=== PATIENT | male | born 1965 | race Asian ===

== ENCOUNTER 2023-09-11 10:05 | Inpatient (IN) | payer OTHER, SELFPAY ==
[2023-09-11] MEDS ORDERED: ASPIRIN 81 MG CHEWABLE TABLET ONE (10:38)
[2023-09-11 11:11] LABS: Absolute Lymphocytes (CBC) 1.5 K/uL (0.7-4.9); Absolute Monocytes 0.3 K/uL (0.1-1.3); Basophils % 0.5 % (0-1.3); Eosinophils % 0.9 % (0-4.4); Hematocrit 41.4 % (39.6-49.0); Hemoglobin 14.2 g/dL (13.6-17.9); Lymphocytes % 30.8 % (15.3-44.8); MCH 31.4 pg (27.0-35.0); MCHC 34.3 g/dL (32.0-36.0); MCV 91.6 fL (80-100); MPV 8.7 fL (7.6-11.3); Monocytes % 6.4 % (3.3-12.3); Neutrophils % 61.4 % (41.7-73.7); Nucleated Red Blood Cells % 0.2 % (0-0); Platelets 167 thou/uL (152-406); RBC Red Blood Cell Count 4.52 M/uL (4.33-5.43); Red Cell Distribution Width 14.5 % (12.1-15.2)
[2023-09-11 11:29] LABS: ALT/SGPT 19 U/L (16-61); AST/SGOT 13 U/L (15-37); Albumin 3.5 g/dL (3.4-5.0); Albumin/Globulin Ratio 0.9 (1.1-1.8); Alkaline Phosphatase 53 U/L (45-117); Anion Gap 7.8 mEq/L (5.0-15.0); BUN Blood Urea Nitrogen 14 mg/dL (7-18); Bicarbonate 25 mEq/L (21-32); Bilirubin Total 0.4 mg/dL (0.2-1.0); Globulin 3.7 g/dL (2.3-3.5); Glomerular Filtration Rate 101 ml/min (=/>90); Glucose Level 82 mg/dL (74-106); Magnesium 2.3 mg/dL (1.6-2.4); NT PRO-BNP 340 pg/mL (<125); Potassium 3.8 mEq/L (3.5-5.1); Protein, Total 7.2 g/dL (6.4-8.2); Sodium Level 140 mEq/L (136-145); Troponin High Sensitivity 49.4 pg/mL (<58.9)
[2023-09-11 11:30] LABS: Bilirubin Direct < 0.2 mg/dL (0-0.2); Bilirubin Indirect, Calculated 0.2 mg/dL (0.2-0.8)
[2023-09-11 11:32] LABS: Protime INR 0.98
--- NOTE | 2023-09-11 12:01 | EDPHYS ---
Physician Documentation [facility] Name: Patrick Cervantes Age: 58 yrs Sex: Male : 1965 Arrival Date: 09/11/2023 Time: 10:05 Bed 11 Private MD: ED Physician Amos San HPI: 09/10 10:38 This 58 yrs old Male presents to ER via Ambulatory with complaints of Chest Pain. sb4 10:38 The patient or guardian reports chest pain that is located primarily in the substernal sb4 area. Onset: 3 day(s) ago. The pain radiates to the left arm. Associated signs and symptoms: Pertinent positives: weakness. The patient has experienced a previous episode, approximately 2 years ago, and the symptoms today are exactly the same. The patient has not recently seen a physician. chest discomfort, left arm tingling, generalized weakness. states this is how he felt when he previously experienced "heart failure" echo done in January 2023 showed an EF of 26%. Historical: - Allergies: 10:32 No Known Allergies; hb - Home Meds: 10:32 isosorbide mononitrate 60 mg Oral Tablet, Extended Release 24 hr daily [Active]; hb Nitrostat SL [Active]; metoprolol succinate 50 mg oral Tablet, Extended Release 24 hr daily [Active]; aspirin 81 mg oral tablet,chewable daily [Active]; prasugrel 10 mg oral tablet 3 tab daily [Active]; lisinopril 2.5 mg Oral tablet daily [Active]; atorvastatin 80 mg oral tablet daily [Active]; ezetimibe 10 mg oral tablet daily [Active]; - PMHx: 10:32 Heart Failure; NV; hb - PSHx: 10:32 Heart Stents; hb - Immunization history:: Adult Immunizations up to date. - Infectious Disease History:: Denies. - Social history:: Smoking status: Patient reports the use of cigarette tobacco products, smokes one pack cigarettes per day. ROS: 10:41 Respiratory: Negative for shortness of breath, cough, wheezing, and pleuritic chest sb4 pain, 10:41 Cardiovascular: Positive for chest pain, 10:41 Neuro: Positive for weakness, Exam: 10:41 Constitutional: This is a well developed, well nourished patient who is awake, alert, sb4 and in no acute distress. Head/Face: Normocephalic, atraumatic. Eyes: Extra-ocular motions intact. Periorbital areas with no swelling, redness, or edema. ENT: Mucous membranes moist. Cardiovascular: Regular rate and rhythm with a normal S1 and S2. Respiratory: Lungs have equal breath sounds bilaterally, clear to auscultation and percussion. No rales, rhonchi or wheezes noted. No increased work of breathing, no retractions or nasal flaring. Abdomen/GI: Soft, non-tender, no distension. Skin: Warm, dry with normal turgor. Normal color with no rashes, no lesions, and no evidence of cellulitis. MS/ Extremity: Pulses equal, no cyanosis. Neurovascular intact. Full, normal range of motion. Neuro: Awake and alert, GCS 15, oriented to person, place, time, and situation. Motor strength 5/5 in all extremities. Sensory grossly intact. Vital Signs: 10:30 BP 150 / 90; Pulse 82; Resp 15; Temp 98.3; Pulse Ox 100% on R/A; Weight 58.97 kg; hb Height 5 ft. 5 in. ; Pain 0/10; 11:10 BP 120 / 86; Pulse 74; Resp 16; Pulse Ox 99% on R/A; mb9 12:12 BP 107 / 82; Pulse 70; Resp 16; Pulse Ox 100% on R/A; mb9 10:30 Body Mass Index 21.63 (58.97 kg, 165.1 cm) hb 10:30 Pain Scale: Adult hb MDM: 10:17 Patient medically screened. sb4 11:35 The patient was given aspirin in the Emergency Department. Data reviewed: vital signs, sb4 nurses notes, lab test result(s), EKG, radiologic studies. Scoring Tools HEART Score: History: ECG: Age: Risk Factors: > or = 3 Risk factors for atherosclerotic disease (2), Troponin: Total Score = 5. 11:59 Counseling: I had a detailed discussion with the patient and/or guardian regarding the sb4 historical points, exam findings, and any diagnostic results supporting the discharge/admit diagnosis, lab results, radiology results, the need for further work-up and treatment in the hospital, smoking cessation. 09/10 10:30 Order name: Basic Metabolic Panel; Complete Time: 11:32 sb4 09/10 10:30 Order name: CBC with Diff; Complete Time: 11:32 sb4 09/10 10:30 Order name: LFT's; Complete Time: 11:32 sb4 09/10 10:30 Order name: Magnesium; Complete Time: 11:32 sb4 09/10 10:30 Order name: NT PRO-BNP; Complete Time: 11:32 sb4 09/10 10:30 Order name: PT-INR; Complete Time: 11:33 sb4 09/10 10:30 Order name: Troponin HS; Complete Time: 11:32 sb4 09/10 10:30 Order name: XRAY Chest (1 view); Complete Time: 12:34 sb4 09/10 10:30 Order name: Cardiac monitoring; Complete Time: 10:49 sb4 09/10 10:30 Order name: EKG - Nurse/Tech; Complete Time: 10:49 sb4 09/10 10:30 Order name: IV Saline Lock; Complete Time: 11:04 sb4 09/10 10:30 Order name: Labs collected and sent; Complete Time: 11: sb4 09/10 10:30 Order name: O2 Per Protocol; Complete Time: 10:49 sb4 09/10 10:30 Order name: O2 Sat Monitoring; Complete Time: 10:49 sb4 EC:44 Rate is 78 beats/min. Rhythm is regular, Sinus Rhythm with Occasional PVCs. NC interval sb4 is normal at 182 msec. QRS interval is normal at 94 msec. QT interval is normal at [address] changes noted. Clinical impression: No evidence of ischemia. Interpreted by me. Reviewed by me. Administered Medications: 11:08 Drug: Aspirin PO Chewable Tablet 324 mg PO once; 81 mg tablets x 4 Route: PO; mb9 12:37 Follow up: Response: No adverse reaction mb9 Disposition Summary: 09/11/23 12:00 Hospitalization Ordered Notes: Hospitalization Status: Observation sb4 Provider: Deejay Cervantes Location: Telemetry/MedSurg (observation) sb4 Condition: Fair sb4 Problem: new sb4 Symptoms: are unchanged sb4 Bed/Room Type: Standard sb4 Room Assignment: 222(09/11/23 13:00) eb Diagnosis - Chest pain, unspecified sb4 Discharge Instructions: - Discharge Summary Sheet mb9 Forms: - Medication Reconciliation Form sb4 - SBAR form sb4 - Leadership Thank You Letter sb4 - Work release form mb9 Addendum: 09/15/2023 02:38 I was immediately available for consultation during this patient's visit. I did not e c2 personally see the patient or discuss the patient with the TIFFANY. . Signatures: Dispatcher [employer] Paula Bourgeois RN RN Laura Hung Sophia, PA-C PAEliza sb4 Liana Hawthorne RN RN mb9 Amos San MD MD ec2 Corrections: (The following items were deleted from the chart) 09/10 10:30 10:30 BASIC METABOLIC PANEL+C.LAB.BRZ ordered. EDMS EDMS 10:30 10:30 CBC+H.LAB.BRZ ordered. EDMS EDMS 10:30 10:30 HEPATIC FUNCTION+C.LAB.BRZ ordered. EDMS EDMS 10:30 10:30 MAGNESIUM+C.LAB.BRZ ordered. EDMS EDMS 10:30 10:30 PROBNP+C.LAB.BRZ ordered. EDMS EDMS 10:30 10:30 PROTIME (+INR)+COAG.LAB.BRZ ordered. EDMS EDMS 10:30 10:30 Troponin High Sensitivity+C.LAB.BRZ ordered. EDMS EDMS 10:30 10:30 Chest Single View+RAD.RAD.BRZ ordered. EDMS EDMS 10:41 10:38 chest discomfort, left arm tingling, generalized weakness. states this is how he sb4 felt when he previously experienced "heart failure". sb4 13:00 12:00 sb4 eb
--- NOTE | 2023-09-11 12:01 | ER ---
Nurse's Notes [facility] Name: Patrick Cervantes Age: 58 yrs Sex: Male : 1965 Arrival Date: 09/11/2023 Time: 10:05 Bed 11 Private MD: Diagnosis: Chest pain, unspecified Presentation: 09/10 10:30 Chief complaint: Intermittent chest pain, SOB, left shoulder pain that radiates to left hb arm and generalized weakness x 1 week. Has been out of all medications x 1 month. Coronavirus screen: At this time, the client does not indicate any symptoms associated with coronavirus-19. Ebola Screen: No symptoms or risks identified at this time. Initial Sepsis Screen: Does the patient meet any 2 criteria? No. Patient's initial sepsis screen is negative. Does the patient have a suspected source of infection? No. Patient's initial sepsis screen is negative. Risk Assessment: Do you want to hurt yourself or someone else? Patient reports no desire to harm self or others. Onset of symptoms was September 04, 2023. 10:30 Method Of Arrival: Ambulatory hb 10:30 Acuity: ESPINOZA 2 hb Triage Assessment: 10:32 General: Appears in no apparent distress. Behavior is calm, cooperative. Pain: Pain hb currently is 0 out of 10 on a pain scale. Neuro: Level of Consciousness is awake, alert, obeys commands, Oriented to person, place, time, situation. Cardiovascular: Patient's skin is warm and dry. Respiratory: Respiratory effort is even, unlabored, Respiratory pattern is regular, symmetrical. Historical: - Allergies: 10:32 No Known Allergies; hb - Home Meds: 10:32 isosorbide mononitrate 60 mg Oral Tablet, Extended Release 24 hr daily [Active]; hb Nitrostat SL [Active]; metoprolol succinate 50 mg oral Tablet, Extended Release 24 hr daily [Active]; aspirin 81 mg oral tablet,chewable daily [Active]; prasugrel 10 mg oral tablet 3 tab daily [Active]; lisinopril 2.5 mg Oral tablet daily [Active]; atorvastatin 80 mg oral tablet daily [Active]; ezetimibe 10 mg oral tablet daily [Active]; - PMHx: 10:32 Heart Failure; MT; hb - PSHx: 10:32 Heart Stents; hb - Immunization history:: Adult Immunizations up to date. - Infectious Disease History:: Denies. - Social history:: Smoking status: Patient reports the use of cigarette tobacco products, smokes one pack cigarettes per day. Screenin:10 [facility] ED Fall Risk Assessment (Adult) History of falling in the last 3 months, mb9 including since admission No falls in past 3 months (0 pts) Confusion or Disorientation No (0 pts) Intoxicated or Sedated No (0 pts) Impaired Gait No (0 pts) Mobility Assist Device Used No (0 pt) Altered Elimination No (0 pt) Score/Fall Risk Level 0 - 2 = Low Risk Oriented to surroundings, Maintained a safe environment, Educated pt \T\ family on fall prevention, incl call for assistance when getting out of bed. Abuse screen: Denies threats or abuse. Nutritional screening: No deficits noted. Tuberculosis screening: No symptoms or risk factors identified. Assessment: 11:08 General: Appears in no apparent distress. Behavior is calm, cooperative. Pain: mb9 Complains of pain in chest Pain radiates to back and left arm Pain currently is 4 out of 10 on a pain scale. Quality of pain is described as sharp, Pain began 3 weeks ago Is intermittent. Neuro: Carvalho Agitation-Sedation Scale (RASS): 0 - Alert and Calm Level of Consciousness is awake, alert, obeys commands, Oriented to person, place, time, situation, Appropriate for age. Cardiovascular: Reports chest pain, Heart tones S1 S2 present Patient's skin is warm and dry. Rhythm is regular. Respiratory: Reports shortness of breath Airway is patent Respiratory effort is even, unlabored, Respiratory pattern is regular, symmetrical, Breath sounds are clear bilaterally. GI: Abdomen is flat, non-distended, Bowel sounds present X 4 quads. Abd is soft and non tender X 4 quads. Reports nausea. : No signs and/or symptoms were reported regarding the genitourinary system. EENT: No signs and/or symptoms were reported regarding the EENT system. Derm: Skin is pink, warm \T\ dry. Musculoskeletal: Range of motion: intact in all extremities. 12:12 Reassessment: No changes from previously documented assessment. Patient and/or family mb9 updated on plan of care and expected duration. Pain level reassessed. Patient is alert, oriented x 3, equal unlabored respirations, skin warm/dry/pink. Vital Signs: 10:30 BP 150 / 90; Pulse 82; Resp 15; Temp 98.3; Pulse Ox 100% on R/A; Weight 58.97 kg; hb Height 5 ft. 5 in. ; Pain 0/10; 11:10 BP 120 / 86; Pulse 74; Resp 16; Pulse Ox 99% on R/A; mb9 12:12 BP 107 / 82; Pulse 70; Resp 16; Pulse Ox 100% on R/A; mb9 10:30 Body Mass Index 21.63 (58.97 kg, 165.1 cm) hb 10:30 Pain Scale: Adult hb ED Course: 10:10 Patient arrived in ED. ts1 10:10 Pauline Catalan PA-C is PHCP. sb4 10:10 Amos San MD is Attending Physician. sb4 10:32 Triage completed. hb 10:35 Arm band placed on. hb 10:36 Client placed on continuous cardiac and pulse oximetry monitoring. NIBP monitoring hb applied. surveillance system monitor on. Pulse ox on. NIBP on. 10:36 Patient has correct armband on for positive identification. Placed in gown. Bed in low hb position. Call light in reach. Provided Education on: tests, result times. 10:45 EKG done, by ED staff, reviewed by Pauline Catalan PA-C. hb 10:56 XRAY Chest (1 view) In Process Unspecified. EDMS 11:01 Inserted saline lock: 22 gauge in right forearm, using aseptic technique. Blood hb collected. Flushed with 10 mL NS. 11:04 Liana Hawthorne, RN is Primary Nurse. mb9 11:04 Basic Metabolic Panel Sent. hb 11:04 CBC with Diff Sent. hb 11:04 LFT's Sent. hb 11:04 Magnesium Sent. hb 11:04 NT PRO-BNP Sent. hb 11:04 PT-INR Sent. hb 11:04 Troponin HS Sent. hb 11:10 No provider procedures requiring assistance completed. mb9 11:59 Deejay Cervantes MD is Hospitalizing Provider. sb4 12:13 Patient admitted, IV remains in place. mb9 Administered Medications: 11:08 Drug: Aspirin PO Chewable Tablet 324 mg PO once; 81 mg tablets x 4 Route: PO; mb9 12:37 Follow up: Response: No adverse reaction mb9 Medication: 11:10 VIS not applicable for this client. mb9 Outcome: 12:00 Decision to Hospitalize by Provider. sb4 12:37 Admitted to mb9 12:37 Condition: stable 12:37 Instructed on the need for admit, 13:36 Admitted to Med/surg accompanied by tech, via stretcher, room 222, mb9 13:36 Instructed on 13:37 Patient left the ED. mb9 Signatures: Dispatcher [employer] EDMS Paula Vaca RN Pauline Reeves, PA-C PA-C sb4 Liana Hawthorne RN RN mb9 Anayeli Sanchez, PAS PAS ts1
--- NOTE | 2023-09-11 12:31 | RAD REPORT ---
EXAM DESCRIPTION: Eulogio Single View09/11/2023 10:54 am CLINICAL HISTORY: CHEST PAIN COMPARISON: No comparisons TECHNIQUE: Portable AP view of the chest. FINDINGS: The lungs are clear apart from minimal reticular bibasilar opacities. No pneumothorax or effusion. The cardiomediastinal contours are unremarkable. IMPRESSION: Nonspecific minimal bibasilar reticular opacities, could reflect atelectasis, scarring, or mild interstitial process.
--- NOTE | 2023-09-11 12:41 | P.HP ---
Certification for Inpatient Patient admitted to: Observation With expected LOS: <2 Midnights <Jennifer Taylor - Last Filed: 09/11/23 14:00> Patient History Date of Service: 09/11/23 Reason for admission: Chest Pain History of Present Illness: 58 yrs old Male with past medical history of CAD, CHF with reduced EF, MT, 6 PCI, tobacco use presents to the emergency room with chest pain. He reports chest pain described as pressure radiates to left arm start 6 months ago, but worse over the last 24 hours. 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 He reports he has not seen a physician because he works a lot. Lives alone, smokes 1 pack a day, independent prior to admission. No reported dizziness, edema, fever, nausea vomiting diarrhea. Plan to admit for chest pain rule out MT, medication noncompliance, heart failure with reduced ejection fraction. - Past Medical/Surgical History -: CAD -: MT x2 -: PCI x6 -: HF w reduced EF -: tobacco use -: 6 PCI -: Hernia surgery - Social History Smoking Status: Current every day smoker Smoking therapy provided: Yes Alcohol use: No CD- Drugs: Yes Caffeine use: No Place of Residence: Home <Jennifer Taylor - Last Filed: 09/11/23 14:00> Date of Service: 09/11/23 <Deejay Cervantes - Last Filed: 09/12/23 00:43> Review of Systems PER HPI <Jennifer Taylor - Last Filed: 09/11/23 14:00> Physical Examination - Physical Exam General: Alert, In no apparent distress, Oriented x3 HEENT: Atraumatic, Normocephalic Neck: Supple, JVD not distended Respiratory: Clear to auscultation bilaterally, Normal air movement Cardiovascular: Normal pulses, Regular rate/rhythm Gastrointestinal: Normal bowel sounds, Soft and benign Musculoskeletal: No swelling, No contractures Integumentary: No breakdown, No significant lesion Neurological: Normal speech, Normal strength at 5/5 x4 extr, Cranial nerves 3-12 intact - Studies Laboratory Data (last 24 hrs) 09/11/23 09/11/23 09/11/23 11:01 11:01 11:01 WBC 4.90 Hgb 14.2 Hct 41.4 Plt Count 167 PT 11.0 INR 0.98 Sodium 140 Potassium 3.8 BUN 14 Creatinine 0.85 Glucose 82 Magnesium 2.3 Total Bilirubin 0.4 AST 13 L ALT 19 Alkaline Phosphatase 53 <Jennifer Taylor - Last Filed: 09/11/23 14:00> - Studies Laboratory Data (last 24 hrs) 09/11/23 09/11/23 09/11/23 11:01 11:01 11:01 WBC 4.90 Hgb 14.2 Hct 41.4 Plt Count 167 PT 11.0 INR 0.98 Sodium 140 Potassium 3.8 BUN 14 Creatinine 0.85 Glucose 82 Magnesium 2.3 Total Bilirubin 0.4 AST 13 L ALT 19 Alkaline Phosphatase 53 <Deejay Cervantes Сергей - Last Filed: 09/12/23 00:43> Assessment and Plan - Plan Assessment/Plan Chest pain rule out MT CAD CHF with reduced EF MT, 6 PCI tobacco Cardiology consult, tele, NPO after MN Lipid panel in am, trend trop Aspirin, beta-violetta, nitro, as needed analgesics, as needed antiemetic use presents to the emergency room with chest pain. He reports chest pain described as pressure radiates to left arm start 6 months ago, but worse over the last 24 hours. 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 He reports he has not seen a physician because he works a lot. Lives alone, smokes 1 pack a day, independent prior to admission. No reported dizziness, edema, fever, nausea vomiting diarrhea. Plan to admit for chest pain rule out MT, medication noncompliance, heart failure with reduced ejection fraction. BP 150 / 90; Pulse 82; Resp 15; Temp 98.3; Pulse Ox 100% on R/A EKG 78 beats/min. Rhythm is regular, Sinus Rhythm with Occasional PVCs. NJ interval is normal at 182 msec. QRS interval is normal at 94 msec. QT interval is normal at [address] changes noted. Clinical impression: No evidence of ischemia. Medications Hyperlipidemia Resume appropriate home meds Diet cardiac SCDs Lovenox Full code Disposition Home independent Discharge Plan: Home - Advance Directives Does patient have a Living Will: No Does patient have a Durable POA for Healthcare: No - Code Status/Comfort Care Code Status: Full Code Critical Care: No Time Spent Managing Pts Care (In Minutes): 55 <Jennifer Taylor - Last Filed: 09/11/23 14:00> Date of Service: 09/11/23 Patient was seen and examined. Events of the last 24 hours have been noted. Spoke with with TIFFANY regarding patient's clinical picture after evaluating and examining the patient independently. I performed a substantial part of the MDM during this patient's care today. I personally made or approved the documented management plan and acknowledge its risk of complications. I agree with the findings and documentation provided in the TIFFANY's notes. Patient will get chest pain workup and will get Cardiology consultation. Patient with history of coronary artery disease and cardiomyopathy. Continue with anti-platelet therapy and statin therapy along with diuretics. Patient will get admitted for cardiac evaluation and optimization. <Deejay Cervantes - Last Filed: 09/12/23 00:43>
[2023-09-11] MEDS ORDERED: ZOLPIDEM TARTRATE 5 MG TABLET PO PRN (13:58)
[2023-09-11] MEDS ORDERED: ACETAMINOPHEN 500 MG TAB PO PRN (13:58)
[2023-09-11] MEDS ORDERED: ONDANSETRON 4 MG/2 ML VIAL IV PRN (13:58)
[2023-09-11] MEDS ORDERED: ENOXAPARIN 60 MG/0.6 ML SQ SCH (14:00)
[2023-09-11] MEDS: ENOXAPARIN 60 MG/0.6 ML SQ SCH (14:00)
[2023-09-11 15:08] VITALS: BMI 21.6
[2023-09-12 06:31] LABS: Absolute Eosinophils 0.1 K/uL (0-0.5); Absolute Lymphocytes (CBC) 2.6 K/uL (0.7-4.9); Absolute Monocytes 0.4 K/uL (0.1-1.3); Absolute Neutrophil 4.2 K/uL (1.8-8.0); Basophils % 0.5 % (0-1.3); Eosinophils % 1.4 % (0-4.4); Hematocrit 46.3 % (39.6-49.0); Hemoglobin 15.5 g/dL (13.6-17.9); MCHC 33.5 g/dL (32.0-36.0); MCV 92.4 fL (80-100); MPV 8.9 fL (7.6-11.3); Monocytes % 5.6 % (3.3-12.3); Neutrophils % 57.5 % (41.7-73.7); Nucleated Red Blood Cells % 0.1 % (0-0); Platelets 176 thou/uL (152-406); RBC Red Blood Cell Count 5.01 M/uL (4.33-5.43); Red Cell Distribution Width 14.7 % (12.1-15.2)
[2023-09-12 07:01] LABS: Magnesium 2.2 mg/dL (1.6-2.4)
--- NOTE | 2023-09-12 08:44 | P.PN ---
Subjective Date of Service: 09/12/23 Chief Complaint: Chest Pain Subjective: No new changes (states he continues to feel pressure in upper left to right chest) <Danielle Ewing - Last Filed: 09/12/23 08:48> Date of Service: 09/12/23 <Deejay Cervantes - Last Filed: 09/13/23 03:28> Review of Systems 10-point ROS is otherwise unremarkable Cardiovascular: Chest Pain, As per HPI <Danielle Ewinglen - Last Filed: 09/12/23 08:48> Physical Examination - Vital Signs Temperature: 97.2 F Blood Pressure: 111/65 Pulse: 67 Respirations: 16 Pulse Ox (%): 99 - Physical Exam General: Alert, In no apparent distress, Oriented x3 HEENT: Atraumatic, Normocephalic Respiratory: Normal air movement Cardiovascular: Normal pulses, Regular rate/rhythm, Normal S1 S2 Capillary refill: <2 Seconds Gastrointestinal: Soft and benign Musculoskeletal: No clubbing, No swelling Integumentary: No rashes Neurological: Normal speech, Normal tone, Normal affect Lymphatics: No axilla or inguinal lymphadenopathy External genitalia: Deferred Rectal: Deferred - Studies Laboratory Data (last 24 hrs) 09/11/23 09/11/23 09/11/23 11:01 11:01 11:01 WBC 4.90 Hgb 14.2 Hct 41.4 Plt Count 167 PT 11.0 INR 0.98 Sodium 140 Potassium 3.8 BUN 14 Creatinine 0.85 Glucose 82 Magnesium 2.3 Total Bilirubin 0.4 AST 13 L ALT 19 Alkaline Phosphatase 53 <Danielle Ewinglen - Last Filed: 09/12/23 08:48> Assessment And Plan - Plan Assessment and Plan - Plan Assessment/Plan Chest pain rule out ID CAD CHF with reduced EF ID, 6 PCI tobacco Cardiology consult, tele, NPO after MN Lipid panel in am, trend trop Aspirin, beta-violetta, nitro, as needed analgesics, as needed antiemetic use presents to the emergency room with chest pain. He reports chest pain described as pressure radiates to left arm start 6 months ago, but worse over the last 24 hours. 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 He reports he has not seen a physician because he works a lot. Lives alone, smokes 1 pack a day, independent prior to admission. No reported dizziness, edema, fever, nausea vomiting diarrhea. Plan to admit for chest pain rule out ID, medication noncompliance, heart failure with reduced ejection fraction. BP 150 / 90; Pulse 82; Resp 15; Temp 98.3; Pulse Ox 100% on R/A EKG 78 beats/min. Rhythm is regular, Sinus Rhythm with Occasional PVCs. AR interval is normal at 182 msec. QRS interval is normal at 94 msec. QT interval is normal at [address] changes noted. Clinical impression: No evidence of ischemia. 09/12/23 Cardiology to evaluate, maintain NPO for now Medications Hyperlipidemia Resume appropriate home meds Diet cardiac SCDs Lovenox Full code <Danielle Ewing - Last Filed: 09/12/23 08:48> Date of Service: 09/12/23 Patient was seen and examined. Events of the last 24 hours have been noted. Spoke with with TIFFANY regarding patient's clinical picture after evaluating and examining the patient independently. I performed a substantial part of the MDM during this patient's care today. I personally made or approved the documented management plan and acknowledge its risk of complications. I agree with the findings and documentation provided in the TIFFANY's notes. Plan for cardiac catheterization in the morning. Continue with current cardiac medications. N.p.o. after midnight. Echocardiogram has been reviewed as well. <Deejay Cervantes - Last Filed: 09/13/23 03:28>
[2023-09-12] MEDS ORDERED: ENOXAPARIN 40 MG/0.4 ML SQ SCH (09:00)
[2023-09-12] MEDS: MORPHINE 2 MG/ML SYR IV PRN (12:17)
--- NOTE | 2023-09-12 12:30 | EKG ---
Test Date: 2023-09-11 Test Time: 10:41:52 Farm Reporter: HB MEASUREMENT RESULTS: Intervals: Rate: 78 CA: 182 QRSD: 94 QT: 354 QTc: 403 [place]: P: 61 CA: 182 QRS: 53 T: 78 INTERPRETIVE STATEMENTS: Sinus rhythm with sinus arrhythmia with occasional and consecutive premature ventricular complexes and fusion complexes Septal infarct, age undetermined Abnormal ECG No previous ECG available for comparison Electronically Signed On 09-12-23 12:29:13 CDT by Scott Sanford
--- NOTE | 2023-09-12 14:19 | ECHO ---
HEIGHT: 5 ft 5 in WEIGHT: 130 lb 0 oz DATE OF STUDY: 09/12/[address]: Jennifer Taylor RIGHT OF WAY MANEliza 2-DIMENSIONAL: YES M.MODE: YES DOPPLER: YES COLOR FLOW: YES TDS: NO PORTABLE: YES DEFINITY: NO BUBBLE STUDY: NO DIAGNOSIS: CHEST PAIN/ REDUCED EJECTION FRACTION CARDIAC HISTORY: CATHERIZATION: YES SURGERY: NO PROSTHETIC VALVE: NO PACEMAKER: NO MEASUREMENTS (cm) DIASTOLIC (NORMALS) SYSTOLIC (NORMALS) IVSd 1.0 (0.6-1.2) LA Diam 2.7 (1.9-4.0) LVEF 42% LVIDd 5.0 (3.5-5.7) LVIDs 4.3 (2.0-3.5) %FS 14% LVPWd 1.2 (0.6-1.2) Ao Diam 2.8 (2.0-3.7) 2 DIMENSIONAL ASSESSMENT: RIGHT ATRIUM: NORMAL LEFT ATRIUM: NORMAL RIGHT VENTRICLE: NORMAL LEFT VENTRICLE: DEPRESSED EJECTION FRACTION TRICUSPID VALVE: MILD TRICUSPID REGURGITATION MITRAL VALVE: MILD MITRAL REGURGITATION PULMONIC VALVE: NORMAL AORTIC VALVE: NORMAL PERICARDIAL EFFUSION: NONE AORTIC ROOT: NORMAL LEFT VENTRICULAR WALL MOTION: SEVERE DISTAL ANTEROSEPTAL AND APICAL HYPOKINESIS. DOPPLER/COLOR FLOW: SEE BELOW. COMMENTS: 1. MODERATLY DEPRESSED LEFT VENTRICULAR EJECTION FRACTION WITH 42% 2. ANTEROSEPTAL AND APICAL HYPOKINESIS. 3. MILD MITRAL REGURGITATION. TECHNOLOGIST: KB PASTOR
--- NOTE | 2023-09-12 20:28 | CON ---
Date of Consultation: 09/12/2023 Reason For Consultation: Chest pain, known history of coronary artery disease. History Of Present Illness: This is a 58-year-old male with history of coronary artery disease, stat us post multiple PCIs, 6 of them as per his report, history of systolic heart failure with reduced ej ection fraction due to the heart attack. He presented with chest pain, pressure-like, left-sided, an d similar to his chest pain, he used to have before his stents, radiates to the shoulder and left upp er extremity. He is a heavy smoker, 1 pack per day. Denying any nausea, vomiting, or diarrhea or di aphoresis with it and his chest pain can be exertional. Past Medical History: Coronary artery disease, CHF, and hypertension. Medications: Refer to reconciliation sheet for detailed list. Allergies: NO KNOWN DRUG ALLERGIES. Past Surgical History: Multiple PCIs. Family History: No premature coronary artery disease or cancer. Social History: He is an active smoker, 1 pack per day. Does not drink or use any drugs. Review of Systems: All systems were reviewed and they were negative except as mentioned in HPI. Physical Examination: Vital signs: Reviewed. Head and Neck: Pupils are equal, reactive to light. Intact eye movements. No JVD. No cervical lym phadenopathy. Neck is supple. Thyroid is not enlarged. Lungs: Clear to auscultation bilaterally. No rhonchi, wheezing, or crackles. No accessory muscle u se. Heart: Regular rate and rhythm. No extra sounds. Abdomen: Soft, nontender. Bowel sounds positive. No organomegaly. No masses or hernia. No rigidi ty or rebound. Extremities: No edema, clubbing, or cyanosis. Intact pulses. Skin: No rash. No nodule. Neurologic: Alert, awake, oriented x3. No acute focal deficits appreciated. Investigations: Troponin 61, BUN 17, creatinine 1.09, and the LDL cholesterol is 46. Assessment And Recommendations: 1.Tjo-EQ-awukrcmia myocardial infarction, active chest pain with known history of coronary artery di sease. Borderline elevated troponin. Keep him NPO past midnight. Plan for coronary angiogram tomor row and continue with baby aspirin 81 mg daily. Please start the patient on aspirin, give him 325 mg and then 81 mg daily. 2.Congestive heart failure, systolic ejection fraction in the mid 30s. He is euvolemic. Continue c urrent management. Should be placed on Entresto and beta-violetta which can be arranged to be done as an outpatient. 3.Active smoker. He was counseled to quit. 4.Dyslipidemia. Recommend Lipitor 40 mg q.h.s. SR/MODL Voice ID: [id number] Report ID: [id number]
[2023-09-13 00:05] LABS: Specific Gravity 1.015 (1.005-1.030); Sqamous Epithelial None Seen /HPF (None Seen); Urine Bacteria None Seen /HPF (<20); Urine Bilirubin NEGATIVE (Negative); Urine Blood Negative (Negative); Urine Clarity Clear (Clear); Urine Color Light-Yellow (Yellow); Urine Culture Reflex Order NOT NEEDED; Urine Glucose NEGATIVE (Negative); Urine Ketones 1+ (Negative); Urine Microscopic Reflex YN ORDER UMIC; Urine Nitrite NEGATIVE (Negative); Urine Protein NEGATIVE (Negative); Urine RBC <5 /HPF (None Seen); Urine Urobilinogen Normal (Normal); Urine WBC <5 /HPF (<5)
[2023-09-13] MEDS: ASPIRIN EC 81 MG TAB PO SCH (07:45)
[2023-09-13] MEDS ORDERED: NA CHLORIDE 0.9% 500 ML ONE (10:03)
[2023-09-13] MEDS ORDERED: MIDAZOLAM HCL 2 MG/2 ML INJ ONE (10:14)
[2023-09-13] MEDS ORDERED: LIDOCAINE 1% 20 ML MDV ONE (10:14)
[2023-09-13] MEDS ORDERED: ATROPINE SULF 1 MG/10 ML SYR IV ONE (10:14)
[2023-09-13] MEDS ORDERED: FENTANYL CITR 100 MCG/2 ML ONE (10:15)
[2023-09-13] MEDS ORDERED: HEPARIN 10,000 UNIT/10 ML VIAL IV ONE (10:15)
[2023-09-13] MEDS ORDERED: HEPARIN 5000 UNIT/ML 1 ML VIAL ONE (10:15)
[2023-09-13] MEDS ORDERED: CLOPIDOGREL 75 MG TABLET ONE (10:15)
[2023-09-13] MEDS ORDERED: TICAGRELOR 90 MG TABLET PO ONE (10:15)
[2023-09-13] MEDS ORDERED: ASPIRIN 325 MG TAB ONE (10:16)
--- NOTE | 2023-09-13 12:07 | P.PN ---
Subjective Date of Service: 09/13/23 Chief Complaint: Chest Pain Subjective: No new changes, No C/O voiced, Tolerating diet, Ambulating, Improving Review of Systems 10-point ROS is otherwise unremarkable Physical Examination - Vital Signs Temperature: 97.1 F Blood Pressure: 121/72 Pulse: 69 Respirations: 16 Pulse Ox (%): 100 - Physical Exam General: Alert, In no apparent distress HEENT: Atraumatic, PERRLA, EOMI Neck: Supple, JVD not distended Respiratory: Clear to auscultation bilaterally, Normal air movement Cardiovascular: Regular rate/rhythm, Normal S1 S2 Gastrointestinal: Normal bowel sounds, No tenderness Musculoskeletal: No tenderness Integumentary: No rashes Neurological: Normal speech, Normal tone, Normal affect Lymphatics: No axilla or inguinal lymphadenopathy - Studies Medications List Reviewed: Yes Assessment And Plan - Current Problems (Diagnosis) (1) CAD (coronary artery disease) Current Visit: Yes Status: Acute Plan: Patient had coronary angiogram done today that shows patent stents with mild diffuse ISR, continue ASA 81 mg daily continue Plavix 75 mg daily continue lipitor continue imdur outpatient follow up with cardiology (2) HTN (hypertension) Current Visit: Yes Status: Acute Plan: continue metoprolol continue imudr continue lisinopril (3) HLD (hyperlipidemia) Current Visit: Yes Status: Acute Plan: continue lipitor and zetia
[2023-09-13 13:05] VITALS: O2SAT 100
[2023-09-13 13:35] VITALS: BP 99/60; TEMP 96.9
--- NOTE | 2023-09-13 14:59 | P.DS ---
Admission Date: 09/13/23 Discharge Date: 09/13/23 Reason for Admission: Chest Pain Consultations: Dr. Cook Procedures: [facility] Brief History of Present Illness: 58 yrs old Male with past medical history of CAD, CHF with reduced EF, NV, 6 PCI, tobacco use presents to the emergency room with chest pain. He reports chest pain described as pressure radiates to left arm start 6 months ago, but worse over the last 24 hours. 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 He reports he has not seen a physician because he works a lot. Lives alone, smokes 1 pack a day, independent prior to admission. No reported dizziness, edema, fever, nausea vomiting diarrhea. Plan to admit for chest pain rule out NV, medication noncompliance, heart failure with reduced ejection fraction. Hospital Course: Mr. Cervantes is a 58-year-old gentleman with a past medical history of coronary artery disease with multiple PCI, hypertension, hyperlipidemia who was admitted for chest pain. His chest pain was intermittent and he did not experience shortness of breath, nausea, vomiting, diaphoresis. He went for left heart cath this morning and his stents appear to be patent. Dr. Cook recommends continued medical management and follow-up with cardiology. <Danielle Ewing - Last Filed: 09/13/23 15:02> Admission Date: 09/13/23 Discharge Date: 09/13/23 Hospital Course: Pt seen and examined. I agree with the note by the MEDICAL ACCOUNTS RECEIVABLE SPECIALIST. Cardiology did cardiac cath which showed patent stent. Will continue medical management. Ok to dc pt. <Michelle Dickey - Last Filed: 09/13/23 15:10> Disposition: ROUTINE DISCHARGE Vital Signs/Physical Exam: Temp Pulse Resp BP Pulse Ox 96.9 F 55 16 99/60 99 09/13/23 13:29 09/13/23 13:29 09/13/23 13:29 09/13/23 13:29 09/13/23 13:29 General: Alert, In no apparent distress, Oriented x3 HEENT: Atraumatic, Normocephalic Neck: Supple Respiratory: Clear to auscultation bilaterally Cardiovascular: No edema, Normal pulses, Regular rate/rhythm Capillary refill: <2 Seconds Gastrointestinal: Normal bowel sounds Musculoskeletal: No clubbing, No swelling Integumentary: No rashes Neurological: Normal speech, Normal tone, Normal affect Lymphatics: No axilla or inguinal lymphadenopathy External genitalia: Deferred Rectal: Deferred Laboratory Data at Discharge: WBC 7.30 thou/uL (4.3-10.9) 09/12/23 06:03 Hgb 15.5 g/dL (13.6-17.9) D 09/12/23 06:03 Hct 46.3 % (39.6-49.0) 09/12/23 06:03 Plt Count 176 thou/uL (152-406) 09/12/23 06:03 PT 11.0 SECONDS (9.4-12.5) 09/11/23 11:01 INR 0.98 09/11/23 11:01 Sodium 137 mEq/L (136-145) 09/12/23 06:03 Potassium 4.0 mEq/L (3.5-5.1) 09/12/23 06:03 BUN 17 mg/dL (7-18) 09/12/23 06:03 Creatinine 1.09 mg/dL (0.70-1.30) 09/12/23 06:03 Glucose 87 mg/dL (74-106) 09/12/23 06:03 Magnesium 2.2 mg/dL (1.6-2.4) 09/12/23 06:03 Total Bilirubin 0.4 mg/dL (0.2-1.0) 09/11/23 11:01 AST 13 U/L (15-37) L 09/11/23 11:01 ALT 19 U/L (16-61) 09/11/23 11:01 Alkaline Phosphatase 53 U/L (45-117) 09/11/23 11:01 Triglycerides 170 mg/dL (<150) H 09/12/23 06:03 Cholesterol 193 mg/dL (<200) 09/12/23 06:03 HDL Cholesterol 46 mg/dL (40-60) 09/12/23 06:03 Cholesterol/HDL Ratio 4.20 09/12/23 06:03 <Ewing,Danielle Tj - Last Filed: 09/13/23 15:02> Vital Signs/Physical Exam: Temp Pulse Resp BP Pulse Ox 96.9 F 55 16 99/60 99 09/13/23 13:29 09/13/23 13:29 09/13/23 13:29 09/13/23 13:29 09/13/23 13:29 Laboratory Data at Discharge: WBC 7.30 thou/uL (4.3-10.9) 09/12/23 06:03 Hgb 15.5 g/dL (13.6-17.9) D 09/12/23 06:03 Hct 46.3 % (39.6-49.0) 09/12/23 06:03 Plt Count 176 thou/uL (152-406) 09/12/23 06:03 PT 11.0 SECONDS (9.4-12.5) 09/11/23 11:01 INR 0.98 09/11/23 11:01 Sodium 137 mEq/L (136-145) 09/12/23 06:03 Potassium 4.0 mEq/L (3.5-5.1) 09/12/23 06:03 BUN 17 mg/dL (7-18) 09/12/23 06:03 Creatinine 1.09 mg/dL (0.70-1.30) 09/12/23 06:03 Glucose 87 mg/dL (74-106) 09/12/23 06:03 Magnesium 2.2 mg/dL (1.6-2.4) 09/12/23 06:03 Total Bilirubin 0.4 mg/dL (0.2-1.0) 09/11/23 11:01 AST 13 U/L (15-37) L 09/11/23 11:01 ALT 19 U/L (16-61) 09/11/23 11:01 Alkaline Phosphatase 53 U/L (45-117) 09/11/23 11:01 Triglycerides 170 mg/dL (<150) H 09/12/23 06:03 Cholesterol 193 mg/dL (<200) 09/12/23 06:03 HDL Cholesterol 46 mg/dL (40-60) 09/12/23 06:03 Cholesterol/HDL Ratio 4.20 09/12/23 06:03 <Michelle Dickey - Last Filed: 09/13/23 15:10> Diet: AHA <Ewing,Danielle Tj - Last Filed: 09/13/23 15:02> <Michelle Dickey - Last Filed: 09/13/23 15:10> Home Medications: Aspirin [Adult Aspirin Regimen] 81 mg PO DAILY 09/11/23 Atorvastatin Calcium [Lipitor] 80 mg PO DAILY 09/11/23 Ezetimibe 10 mg PO DAILY 09/11/23 Isosorbide Mononitrate [Isosorbide Mononitrate ER] 30 mg PO DAILY 09/11/23 Lisinopril [Zestril] 2.5 mg PO DAILY 09/11/23 Metoprolol Tartrate [Lopressor*] 50 mg PO DAILY 09/11/23 Clopidogrel Bisulfate [Plavix] 75 mg PO DAILY #90 tab 09/13/23 New Medications: Clopidogrel Bisulfate [Plavix] 75 mg PO DAILY #90 tab Physician Discharge Instructions: Your [facility] policy is managed by [facility]. Here is the information to establish PCP with the local [facility] as we discussed. Please feel free to call me if you need any additional help or assistance! ~ Radha Glover RN Case Manager ) [facility] [address] [place] [address] Providers: Dr. Souleymane Mcdonald; Renay Hoffmann-HEALTH BENEFITS SPECIALIST; Barbra Clayton-HEALTH BENEFITS SPECIALIST - Current Problems (Diagnosis) (1) CAD (coronary artery disease) Current Visit: Yes Status: Acute Plan: Patient had coronary angiogram done today that shows patent stents with mild diffuse ISR, continue ASA 81 mg daily continue Plavix 75 mg daily continue lipitor continue imdur outpatient follow up with cardiology (2) HTN (hypertension) Current Visit: Yes Status: Acute Plan: continue metoprolol continue imdur continue lisinopril (3) HLD (hyperlipidemia) Current Visit: Yes Status: Acute Plan: continue lipitor and zetia Mr. Cervantes is a 58-year-old gentleman with a past medical history of coronary artery disease with multiple PCI, reduced EF, hypertension, hyperlipidemia who was admitted for chest pain. His chest pain was intermittent and he did not experience shortness of breath, nausea, vomiting, diaphoresis. He went for left heart cath this morning and his stents appear to be patent. Dr. Cook recommends continued medical management and follow-up with cardiology. New prescriptions: restart Plavix May take Tylenol for pain, do not take on empty stomach No driving on as needed analgesics or operating heavy equipment GOAL: Clear understanding of disease process Diet: ADA, low sodium Activity: Fall precautions INSTRUCTIONS: Physician Discharge Instructions: Okay to DC IV and DC home Follow-up with primary care provider in 1 to 2 weeks Follow-up with cardiology in 1 to 2-week Please call the inpatient unit for any questions or concerns regarding hospital stay Return to the ER for worsening symptoms Followup: NONE,NONE [Primary Care Provider] - Jose Cook MD [ACTIVE - CAN ADMIT] -
[2023-09-13] MEDS ORDERED: ATORVASTATIN 40 MG TAB PO SCH (21:00)
--- NOTE | 2023-09-14 21:06 | OP ---
Date of Procedure: 09/13/2023 Surgeon: Jose Cook Procedure Performed: Selective coronary angiogram. Indication For Procedure: Unstable angina. Complications: None. Estimated Blood Loss: Less than 50 cc. Access: Right radial, closed by TR band. Sedation Time: 20 minutes with 1 of Versed and 25 of fentanyl. Description Of Procedure: After risks, and benefits, and alternatives were explained to patient, pat ient agreed to proceed with procedure and signed informed consent. 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 Time-out was performed. Sedation was administer ed. Next, an ultrasound-guided right ulnar access was obtained as the radial artery was very small. [place] 4.0 catheter was advanced over a J-wire to the aortic root. Selective angiogram was done and the same catheter was removed over a J-wire and then TR band was applied to close the ulnar approach. Hemostasis was achieved and patient was moved back to recovery in stable condition. Findings: 1.Left main; diffuse 40% disease. 2.LAD; ostial/proximal/mid stents patent with diffuse 30% to 40% ISR and then distal mild luminal ir regularities. 3.Diagonal; small proximal 90% disease jailed by a stent. 4.Left circ; proximal stent into OM is patent. 5.RCA; proximal/mid/distal stent patent. 6.RPDA/RPLB; mild luminal irregularities. Assessment And Plan: 1.Patent stents with mild ISR. 2.Moderate left main disease. 3.Significant diagonal 1 disease, small artery, jailed by an old stent. The plan is to continue medical management for coronary artery disease. JULIET/PATRICIA Voice ID: [id number] Report ID: [id number]
== END 2023-09-13 16:22 | disposition home or self-care (01) | DRG 281 ==
LOC: ER 10:05 → ERHOLD 12:42 → 2ND 13:05 → OBSVTOIN 09-13 10:05
PROVIDERS: ADMIT Hospitalist; ATTEND Hospitalist
PROC: 4A023N7 Measurement of Cardiac Sampling and Pressure, Left Heart, Percutaneous Approach (ICD-10-PCS; principal; 2023-09-13)
PROC: B2111ZZ Fluoroscopy of Multiple Coronary Arteries using Low Osmolar Contrast (ICD-10-PCS; 2023-09-13)
DX: I21.4 Non-ST elevation (NSTEMI) myocardial infarction (principal); I50.22 Chronic systolic (congestive) heart failure; I11.0 Hypertensive heart disease with heart failure; E78.5 Hyperlipidemia, unspecified; I49.3 Ventricular premature depolarization; I25.10 Atherosclerotic heart disease of native coronary artery without angina pectoris; F17.210 Nicotine dependence, cigarettes, uncomplicated; I25.2 Old myocardial infarction; Z60.2 Problems related to living alone; Z95.5 Presence of coronary angioplasty implant and graft; Z79.82 Long term (current) use of aspirin; Z79.02 Long term (current) use of antithrombotics/antiplatelets; Z79.899 Other long term (current) drug therapy; Z91.148 Patient's other noncompliance with medication regimen for other reason
CPT/HCPCS: 36415; 71045; 76937; 80048; 80061; 80076; 81001; 82947; 83735; 83880; 84484; 85025; 85610; 93005; 93306; 93454; 99152; 99153; 99285; C1893; G0378; J0461; J1644; J1650; J2001; J2250; J2270; J3010; J7040; Q9966